=== PATIENT | male | born 1995 | race Caucasian/White ===

== ENCOUNTER 2018-01-31 15:23 | Emergency (ER) | payer OTHER ==
[2018-01-31 15:42] VITALS: BP 125/74
--- NOTE | 2018-01-31 15:45 | UC ---
Eye Complaint HPI - HPI Summary HPI Summary: pt was picking up wood and felt something go in L eye 1 h ago. painful ever since - History of Current Complaint Stated Complaint: EYE INJURY Time Seen by Provider: 01/31/18 15:37 Hx Obtained From: Patient Onset/Duration: Sudden Onset Severity Initially: Moderate Severity Currently: Moderate Location of Injury: Conjunctiva Character: Foreign Body Sensation Aggravating Factor(s): Light, Blinking Alleviating Factor(s): Nothing Associated Signs And Symptoms: Positive: Photophobia. Negative: Vision Impairment Left - Allergies/Home Medications Allergies/Adverse Reactions: Allergies Allergy/AdvReac Type Severity Reaction Status Date / Time No Known Allergies Allergy Verified 01/31/18 15:42 Home Medications: Home Medications NK [No Home Medications Reported] 01/31/18 [History Confirmed 01/31/18] PMH/Surg Hx/FS Hx/Imm Hx Previously Healthy: Yes - Family History Known Family History: Positive: None - Social History Occupation: Student Lives: With Family Alcohol Use: Rare Substance Use Type: None Smoking Status (MU): Never Smoked Tobacco Review of Systems Constitutional: Negative Eyes: Eye Redness, Photophobia Respiratory: Negative Cardiovascular: Negative Musculoskeletal: Negative Psychological: Negative Is Patient Immunocompromised?: No All Other Systems Reviewed And Are Negative: Yes Physical Exam Triage Information Reviewed: Yes Appearance: Well-Appearing, No Pain Distress, Well-Nourished Vital Signs Reviewed: Yes Eyes: Positive: Conjunctiva Inflamed, Other: - tearing Respiratory Exam: Normal Cardiovascular Exam: Normal Neurological Exam: Normal Psychological Exam: Normal Skin Exam: Normal Procedures - Eye Procedure Alcaine Drops Administered: Yes Eye Irrigated w/ Saline (ccs): 20 Eye Complaint Course/Dx - Course Course Of Treatment: no F.B. or CA detected on exam with Fluorescein - Differential Dx/Diagnosis Differential Diagnosis/HQI/PQRI: Conjunctivitis, Corneal Abrasion, Foreign Body Provider Diagnoses: corneal abrasion Discharge - Sign-Out/Discharge Documenting (check all that apply): Discharge/Admit/Transfer - Discharge Plan Condition: Stable Disposition: HOME Patient Education Materials: Corneal Abrasion (ED) [facility] [Primary Care Provider] - Additional Instructions: protect eye from wind and bright lights return if symptoms worsen or report to the ER - Billing Disposition and Condition Condition: STABLE Disposition: HOME
[2018-01-31] MEDS ORDERED: Fluorescein Sod TOPICAL 0.6* 0.6 MG TEST OPHTHALMIC ONE (15:49)
[2018-01-31] MEDS ORDERED: Eye Irrigation Solution 30 ML BOTTLE LEFT EYE ONE (15:50)
[2018-01-31] MEDS ORDERED: Tetracaine 0.5% OPTH.SOL 4 ML* 1 DROP BTL LEFT EYE ONE (15:50)
== END 2018-01-31 16:20 | disposition home or self-care (01) ==
LOC: UCEAST 15:23
DX: S05.02XA Injury of conjunctiva and corneal abrasion without foreign body, left eye, initial encounter (principal); X58.XXXA Exposure to other specified factors, initial encounter; Y93.89 Activity, other specified; Y92.9 Unspecified place or not applicable
CPT/HCPCS: 99202; A9270-GY; G0463